=== PATIENT | female | born 1955 | race African-American/Black ===

== ENCOUNTER 2018-11-02 18:09 | Emergency (ER) | payer SELFPAY ==
[~2018-11-02] VITALS: Ht 167.6 cm; Wt 88.0 kg
[2018-11-02 18:32] VITALS: Ht 167.6 cm; Wt 88.0 kg
[2018-11-02 19:48] LABS: CALCIUM 9.3 mg/dL (8.5-10.1); CARBON DIOXIDE 31.9 mmol/L (21-32); CHLORIDE SERUM 107 mmol/L (98-107); GFR1 59 mL/min; GLUCOSE SERUM 270 mg/dL (74-106); POTASSIUM SERUM 4.2 mmol/L (3.5-5.1); SODIUM SERUM 146 mmol/L (136-145)
[2018-11-02 19:54] LABS: ALBUMIN 3.9 g/dL (3.4-5.0); ALKALINE PHOSPHATASE 111 U/L (46-116); ALT/SGPT 25 U/L (14-59); AST/SGOT 16 U/L (15-37); BILIRUBIN TOTAL 0.67 mg/dL (0.20-1.00); TOTAL PROTEIN, SERUM 7.4 g/dL (6.4-8.2)
[2018-11-02 19:56] LABS: BASOPHIL % 0.3 % (0-2); PLATELET COUNT 196 x10^3mcL (130-400)
[2018-11-02 19:57] LABS: RED CELL DISTRIBUTION WIDTH 17.6 % (11.5-14.5)
[2018-11-02 19:59] LABS: C REACTIVE PROTEIN < 0.2 mg/dL (<=0.9)
[2018-11-02 20:03] LABS: T3 TOTAL 0.99 ng/mL
[2018-11-02 20:06] LABS: FREE T4 0.95 ng/dL (0.76-1.46); FREE THYROXINE INDEX 2.5 ug/dL (1.4-4.5); T4(THYROXINE) 7.6 ug/dL (4.7-13.3)
[2018-11-02 22:47] VITALS: BP 139/76
== END 2018-11-02 22:47 | disposition home or self-care (01) ==
LOC: ED 18:09
PROVIDERS: Emergency Medicine
DX: R53.1 Weakness (principal); E11.9 Type 2 diabetes mellitus without complications; E78.5 Hyperlipidemia, unspecified
CPT/HCPCS: 82962; 84439; J7030